=== PATIENT | female | born 1990 | race Caucasian/White ===

== ENCOUNTER 2021-05-29 08:19 | Outpatient (CLI) | payer BC, SELFPAY ==
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
[2021-06-01 13:19] VITALS: BMI 41.8
== END 2021-05-30 08:28 | disposition home or self-care (01) ==
LOC: ANHCSM 08:21
PROVIDERS: Visit Provider Internal Medicine Critical Care Medicine
DX: G47.10 Hypersomnia, unspecified (principal); G47.33 Obstructive sleep apnea (adult) (pediatric)
CPT/HCPCS: 95810

== ENCOUNTER 2022-03-03 16:26 | Outpatient (CLI) | payer BC, SELFPAY ==
[2022-03-03 22:38] LABS: Hemoglobin A1C 5.1 % (<5.7)
[2022-03-06 13:12] LABS: Insulin Level Total 3.1 uIU/mL (<=19.6)
[2022-03-08 07:27] LABS: LH 7.3 mIU/mL (***); Progesterone <0.2 ng/mL (***)
== END 2022-03-03 16:27 | disposition home or self-care (01) ==
PROVIDERS: PCP Family Medicine; Visit Provider Obstetrics & Gynecology
DX: N92.6 Irregular menstruation, unspecified (principal)
CPT/HCPCS: 36415; 83001; 83002; 83036; 83525; 84144

== ENCOUNTER 2022-09-23 11:05 | Outpatient (CLI) | payer BC, SELFPAY ==
[2022-09-29 15:26] LABS: HSV 1 IgM Screen Negative (Negative); HSV 2 IgM Screen Negative (Negative)
== END 2022-09-23 11:06 | disposition home or self-care (01) ==
LOC: ANHLAB 11:08
PROVIDERS: PCP Family Medicine; Visit Provider Obstetrics & Gynecology
DX: Z71.1 Person with feared health complaint in whom no diagnosis is made (principal)
CPT/HCPCS: 36415; 86695; 86696